=== PATIENT | male | born 1990 | race Caucasian/White ===

== ENCOUNTER 2024-03-09 20:51 | Emergency (ER) | payer SELFPAY ==
[~2024-03-09] VITALS: Ht 185.4 cm; Wt 126.8 kg
[2024-03-09 21:08] VITALS: BP 124/74; PULSE 101; RESP 20; TEMP 97.7; O2SAT 96
[2024-03-09 21:15] VITALS: BP 124/74; PULSE 101; RESP 20; TEMP 97.7; O2SAT 96
== END 2024-03-09 23:20 | disposition home or self-care (01) ==
LOC: MED 20:51
DX: G62.9 Polyneuropathy, unspecified (principal); G56.30 Lesion of radial nerve, unspecified upper limb
CPT/HCPCS: 82948; 99282